=== PATIENT | female | born 1970 | race Hispanic/Latino ===

== ENCOUNTER 2017-11-29 19:03 | Emergency (ER) | payer SELFPAY ==
[2017-11-29] MEDS ORDERED: KETOROLAC TROMETHAMINE 60 MG/2 ML VIAL ONE (19:39)
[2017-11-29] MEDS ORDERED: DEXAMETHASONE SOD PHOSPHATE 10MG/ML 1ML VIAL ONE (19:39)
== END 2017-11-29 20:09 | disposition home or self-care (01) ==
LOC: EDH 19:03
DX: M25.512 Pain in left shoulder (principal)
CPT/HCPCS: 73030; 81025; 96372 ×2; 99285; J1100; J1885